=== PATIENT | female | born 2000 | race Caucasian/White ===

== ENCOUNTER 2019-03-22 11:04 | Emergency (ER) | payer SELFPAY ==
[2019-03-22 11:05] VITALS: BP 135/87; PULSE 85; RESP 16; TEMP 36.3; O2SAT 98; BMI 25.7
[2019-03-22] MEDS: proMETHazine 25 MG/ML Syringe 12.5 MG IV (11:31)
[2019-03-22 11:32] LABS: Absolute Lymphocyte Count 1.37 X10^3/uL (0.83-4.51); Absolute Neutrophil Count 7.2 X10^3/uL (2.0-7.7); Basophil# 0.03 X10^3/uL; Basophil% 0.3 % (0-1); Eosinophil# 0.02 X10^3/uL; Eosinophils% 0.2 % (0-5); Hematocrit 39.4 % (37-47); Hemoglobin 13.2 g/dL (12.0-15.0); Lymphocyte # 1.37 X10^3/ul (4.0); Lymphocyte % 15.1 % (19-41); Mean Corp Hgb Conc 33.5 g/dL (32-36); Mean Corpuscular Hgb 28.4 pg (27.0-32.0); Mean Corpuscular Volume 84.9 fL (81-99); Mean Platelet Vol. 9.3 fl (6.2-12.0); Monocyte# 0.43 X10^3/uL; Monocyte% 4.7 % (0-10); NRBC Flagged by Analyzer 0 % (0-5); Neutrophil # 7.22 X10^3/uL (2.7-7.7); Neutrophil % 79.4 % (47-70); Platelet Count 328 K/mm3 (150-450); RBC Distribution Width CV 13.7 % (11.6-14.6); RBC Distribution Width SD 42.4 fl (35.1-43.9); Red Blood Count 4.64 M/mm3 (4.2-5.4); White Blood Count 9.1 K/mm3 (4.4-11.0)
[2019-03-22 11:55] LABS: ALB/GLOB Ratio 0.8 RATIO (0.9-2.4); AST(SGOT) 10 U/L (15-37); Alanine Aminotransfer ALT/SGPT 24 U/L (13-56); Alkaline Phosphatase 75 U/L (45-117); Anion Gap 10 (5-15); BUN 7 mg/dL (7-18); BUN/Creat Ratio 9.7 RATIO (10-20); Calcium,Total 9.2 mg/dL (8.5-10.1); Chloride 102 mmol/L (98-107); Creatinine, Serum 0.72 mg/dL (0.55-1.02); EST Glomerular Filtration Rate 110 mL/min (>60); Est Glom Filt Rate - Afr Amer 133 mL/min (>60); Estimated Creatinine Clearance 103.96 ml/min; Globulin 4.9 g/dL (2.2-4.2); Glucose 97 mg/dL (74-106); Potassium 3.6 mmol/L (3.5-5.1); Protein, Total 8.9 g/dL (6.4-8.2); Sodium Level 137 mmol/L (136-145)
[2019-03-22] MEDS: Ondansetron 4 MG/2 ML Vial IV (12:28)
[2019-03-22] MEDS: 0.9% Normal Saline 1,000 ML 999 ML IV ×2 (12:29)
--- NOTE | 2019-03-22 14:05 | ED.DCSUM_ITS ---
- ER Visit Summary Date of Service: 03/22/19 Chief Complaint: Nausea and vomiting History of Present Illness: The patient is a 18 F who is at 7 weeks and 3 days. She does not have an OB yet. She presents today with nausea and vomiting for 2 days. She tried taking some Phenergan with no improvement. She denies any abdominal pain, vaginal bleeding, or vaginal discharge. Denies fevers. Physical Examination: Afebrile and vital signs unremarkable. Patient alert and oriented. No acute distress. Heart regular rate and rhythm. Lungs clear. Abdomen soft and nontender. No guarding or rebound. Gait appears normal. No edema. Test Results: CBC, CMP unremarkable. Emergency Department Course and Treatment: Patient treated with IV fluids and Phenergan. I did check some basic blood work, CBC, CMP, hCG. On reevaluation, the patient was having continued nausea and vomiting. After discussion, she was treated with Zofran. On further reevaluation, nausea and vomiting have resolved. Patient tolerated PO. Will discharge to follow-up with OB. Return for abdominal pain, bleeding, discharge. Return for fevers, new, or worsening symptoms. Treatment Plan: As above Disposition: Discharge Impression: 1. Nausea and vomiting 2. This note was generated with [email or web address] software. It may contain incorrect words, spelling, and punctuation that were not noted in review of the chart prior to signing ED Disposition - Plan for ED Patient: Referrals: Perla Dee MD [Primary Care Provider] -
--- NOTE | 2019-03-22 14:08 | ED.DEP ---
ED Disposition - Plan for ED Patient: Instructions: Hyperemesis Gravidarum (Severe Morning Sickness) Prescriptions: proMETHazine tablet [Phenergan] 25 mg PO Q6H PRN PRN #10 tab PRN Reason: Nausea Prescription Printed Referrals: Micaela Donovan MD [STAFF PHYSICIAN] -
[2019-03-22 14:17] VITALS: PULSE 85; RESP 18
== END 2019-03-22 14:18 | disposition home or self-care (01) ==
LOC: ED 11:41
PROVIDERS: Emergency Provider Emergency Medicine; Family Provider Family Medicine; PCP Family Medicine
DX: O21.9 Vomiting of pregnancy, unspecified (principal); Z3A.01 Less than 8 weeks gestation of pregnancy; O99.331 Smoking (tobacco) complicating pregnancy, first trimester
CPT/HCPCS: 80053; 84702; 85025; 96361; 96374; 96375; 99283; J7030; A4216; J2405

== ENCOUNTER 2019-04-07 13:23 | Emergency (ER) | payer SELFPAY ==
[2019-04-07 13:24] VITALS: BP 139/90; PULSE 86; RESP 16; TEMP 36.7; O2SAT 99; BMI 25.7
--- NOTE | 2019-04-07 13:37 | ED.DCSUM_ITS ---
History of Present Illness Chief Complaint: Nausea/Vomiting Informant: Patient Onset: Today Context: Sudden Onset Timing: Intermittent Quality: Nausea and vomiting Location: Not applicable Current Severity: Moderate Maximum Severity: Moderate Worsened by: First trimester Relieved by: Nothing Associated Symptoms: Thirst, dry mouth and lightheaded Narrative: Patient is a 18-year-old G1, P0 Ab0 female who is approximately 9 weeks gest ation by dates who presents with nausea vomiting started this morning. She last urinated yesterday. She denies hematemesis, no hematochezia. She denies abdominal pain. She denies cardiac or respiratory symptoms. She does not have an manager title. Prior similar symptoms: No Recent Illness/Hospitalization: No - Past Medical History (1) No significant past medical history Status: Acute Past Medical History - Allergies and Home Meds Allergies/Adverse Reactions: Allergies No Known Allergies Allergy (Verified 04/07/19 13:23) Primary Care Physician: Perla Dee MD [Primary Care Provider] - Past Medical History: None Surgical History: no surgical history Lives: Spouse/ Significant Other Smoking Status: Current some day smoker Alcohol: None, Rare Drugs: None Review of Systems General: Reports: Malaise. Denies: Chills, Fever, Subjective, Sweats, Weight loss Eyes: Denies: Visual changes - bilaterally, Blurred Vision - bilaterally, Diplopia ENT: Denies: Rhinorrhea, Sore throat Cardiovascular: Denies: Chest pain, Palpitations Respiratory: Denies: Dyspnea, Cough, Dyspnea on exertion Gastrointestinal: Reports: Abdominal pain - Vomiting, Nausea, Vomiting. Denies: Diarrhea, Constipation, Melena, Hematochezia, -, - Genitourinary: Denies: Dysuria, Hematuria, Frequency Musculoskeletal: Denies: Myalgias, Arthralgias, Neck pain, Back pain, Swelling, Extremity Pain Skin: Denies: Rash, Wounds Neurological: Denies: Headache, Weakness, Numbness Allergy: Denies: Uticaria, Swelling of the mouth Physical Exam Vital Signs/Narrative: Vital Signs Temp Pulse Resp BP Pulse Ox 04/07/19 13:24 98.0 F 86 16 139/90 H 99 Inital Vital Signs reviewed: Yes General: Well nourished, Well developed, No Acute Distress - Patient is holding an emesis bag. Head: Normocephalic, Atraumatic Eyes: Perrl, EOMI ENT: Moist mucous membranes, No rhinorrhea Neck: Supple, Nontender Cardiovascular: Regular rate, Regular rhythm, No murmurs Respiratory: No distress, CTA bilaterally, Chest nontender Abdomen: Soft, Nondistended, Normal bowel sounds, Tender - Mild periumbilical d iscomfort Back: Nontender, Normal Inspection. Negative for: CVA tenderness, Spinal tenderness Extremities: Nontender, No edema Skin: Normal color, No rash Neurological: Alert, Oriented x3, Cranial nerves II-XII grossly intact, Normal Strength, Normal Sensation Psychological: Normal affect, Normal Mood Diagnostic/Tx/Re-eval Laboratory Results 04/07/19 14:40 Urine Color Yellow Urine Clarity Sl. Cloudy Urine pH 6.5 Ur Specific Lissie 1.020 Urine Protein 30 H Urine Glucose (UA) Normal Urine Ketones 150 H Urine Occult Blood 10 H Urine Nitrite Negative Urine Bilirubin Negative Urine Urobilinogen Normal Ur Leukocyte Esterase 500 H Urine RBC 0-5 SEEN Urine WBC 25-50 SEEN Ur Squamous Epith Cells 5-10 SEEN Urine Bacteria 1+ Urine Mucus 0 SEEN Urine is suggestive of urinary tract infection. Culture was sent. She received antibiotics. She was referred to Dr. Eloina June who is on-call for [facility] or no doc. - Medical Decision Making In light of the fact that she is 9 weeks with nausea and vomiting started on abruptly concerned she has severe morning sickness. IV was established. She received 1 L normal saline. Urine was assessed for infection as well as gravity and ketones. She was treated with antiemetic. Once liter has infused will order p.o. challenge. Differential diagnosis includes nausea vomit second viral illness versus hyperemesis gravidarum versus other cause. She did pass p.o. challenge. He was treated with antibiotics and referred to [facility]. ED Disposition - Plan for ED Patient: Disposition: Home or Assisted Living Diagnosis: UTI (urinary tract infection) in in first trimester, Morning sickness, Ketosis Instructions: Urinary Tract Infections in Women, Hyperemesis Gravidarum (Severe Morning Sickness) Prescriptions: Nitrofurantoin Macrocrystals [Macrobid] 100 mg PO Q12 #14 cap Transmission Status: Pending to [facility]/pharmacy #[id number] Ondansetron [Zofran Odt] 4 mg PO Q8H PRN PRN #10 tab PRN Reason: Nausea Transmission Status: Pending to [facility]/pharmacy #[id number] Referrals: Perla Dee MD [Primary Care Provider] - Candido Rice MD [NON-STAFF] - Eloina Brand MD [STAFF PHYSICIAN] - 3-5 Days
[2019-04-07 13:43] VITALS: BP 130/70; PULSE 80; RESP 14; O2SAT 98
[2019-04-07] MEDS: 0.9% Normal Saline 1,000 ML 1000 ML IV (13:58)
[2019-04-07] MEDS: Ondansetron 4 MG/2 ML Vial IV (13:58)
[2019-04-07 14:53] LABS: Mucous, Urine 0 SEEN /hpf (<or=2+)
[2019-04-07 14:58] LABS: Color, Urine Yellow (Yellow); Glucose, Dipstick Normal (Normal); Leukocyte Esterase-Dipstick 500 /ul (Negative); Nitrite-Dipstick Negative (Negative); Occult Blood-Urine 10 /ul (Negative); Protein-Dipstick 30 mg/dl (Negative); Urine Bilirubin Dipstick Negative (Negative); Urine Clarity Sl. Cloudy (Clear); Urine Urobilinogen Normal (Normal); Urine pH 6.5 (5.0 - 8.0)
[2019-04-07 15:01] LABS: Ketone-Dipstick 150 mg/dl (Negative)
[2019-04-07 15:05] LABS: Bacteria 1+ /hpf (None Seen); Red Blood Cells-Urine 0-5 SEEN /hpf (0-5); Squamous Epithelial Cells - UA 5-10 SEEN /hpf (5-10); White Blood Cells 25-50 SEEN /hpf (0-5)
[2019-04-07] MEDS: Nitrofurantoin Macrocrystals 100 MG Capsule PO (15:17)
[2019-04-07 15:18] VITALS: BP 124/80; PULSE 80; RESP 14; O2SAT 98
== END 2019-04-07 15:18 | disposition home or self-care (01) ==
PROVIDERS: Emergency Provider Emergency Medicine; Family Provider Family Medicine; PCP Family Medicine
DX: O23.41 Unspecified infection of urinary tract in pregnancy, first trimester (principal); O21.0 Mild hyperemesis gravidarum; O99.281 Endocrine, nutritional and metabolic diseases complicating pregnancy, first trimester; E88.89 Other specified metabolic disorders; O99.331 Smoking (tobacco) complicating pregnancy, first trimester; Z3A.09 9 weeks gestation of pregnancy
CPT/HCPCS: 81001; 87086; 87088; 96361; 96374; 99283; J7030; A4216; J2405

== ENCOUNTER 2019-08-16 13:32 | Emergency (ER) | payer SELFPAY ==
[2019-08-16 13:33] VITALS: BP 138/95; PULSE 90; RESP 18; TEMP 36.4; BMI 30.2
[2019-08-16] MEDS: 0.9% Normal Saline 1,000 ML 1000 ML IV ×2 (14:04→15:42)
[2019-08-16] MEDS: Ondansetron 4 MG/2 ML Vial IV ×2 (14:04→16:04)
--- NOTE | 2019-08-16 14:15 | ED.DCSUM_ITS ---
History of Present Illness Chief Complaint: Nausea/Vomiting Informant: Patient Narrative: Patient states that she is 7 months and has been having vomiting since midnight. She also states diarrhea started today. Emesis is minimal issues with this . She typically takes Zofran but is out and states she cannot get any prescription until tomorrow when her pharmacy is open. She denies any fevers or rashes. No recent antibiotics or bad food exposure. G1, P0. She sees [facility] out of [place]. She denies any significant leg swelling, contractions or leakage of fluid/blood. Past Medical History - Allergies and Home Meds Allergies/Adverse Reactions: Allergies No Known Allergies Allergy (Verified 04/07/19 13:23) Primary Care Physician: Perla Dee MD [Primary Care Provider] - As Needed Surgical History: no surgical history Smoking Status: Never smoker Review of Systems General: Denies: Chills, Fever, Sweats Eyes: Denies: Visual changes - bilaterally, Diplopia ENT: Denies: Rhinorrhea, Sore throat Cardiovascular: Denies: Chest pain, Palpitations Respiratory: Denies: Dyspnea, Cough, Dyspnea on exertion Gastrointestinal: Reports: Nausea, Diarrhea. Denies: Abdominal pain, Melena, Hematochezia Genitourinary: Denies: Dysuria, Hematuria, Frequency Musculoskeletal: Denies: Back pain, Extremity Pain Skin: Denies: Rash, Wounds Neurological: Denies: Headache, Weakness, Numbness Physical Exam Vital Signs/Narrative: Vital Signs Temp Pulse Resp BP 08/16/19 13:33 97.5 F L 90 18 138/95 H Inital Vital Signs reviewed: Yes General: Well nourished, Well developed, No Acute Distress, - - actively vomiting Head: Normocephalic, Atraumatic Eyes: Perrl, EOMI ENT: Moist mucous membranes, No rhinorrhea Neck: Supple, Nontender Cardiovascular: Regular rate, Regular rhythm, No murmurs Respiratory: No distress, CTA bilaterally, Chest nontender Abdomen: Soft, Nontender, Nondistended, Normal bowel sounds Back: Nontender, Normal Inspection Extremities: Nontender, No edema Skin: Normal color, No rash Neurological: Alert, Oriented x3, Cranial nerves II-XII grossly intact, Normal Strength, Normal Sensation Psychological: Normal affect, Normal Mood Diagnostic/Tx/Re-eval - Medical Decision Making She received 2 L of IV fluids as well as Zofran. heart tones 136. Urinalysis was ordered. She passed a p.o. challenge. She clinically appears well. care of the patient will be checked out to oncoming physician for check of urine and final disposition. I would anticipate a discharge prescription for Zofran. ED Disposition - Plan for ED Patient: Instructions: VOMITING AND DIARRHEA, Nonspecific (Adult) Prescriptions: Ondansetron [Zofran Odt] 4 mg PO Q6H PRN PRN #20 tab PRN Reason: Nausea Prescription Printed Referrals: Perla Dee MD [Primary Care Provider] - As Needed
[2019-08-16 15:39] LABS: Bacteria 0 SEEN /hpf (None Seen)
[2019-08-16 15:40] LABS: Color, Urine YELLOW (Yellow); Glucose, Dipstick Normal (Normal); Ketone-Dipstick 50 mg/dl (Negative); Leukocyte Esterase-Dipstick 100 /ul (Negative); Nitrite-Dipstick Negative (Negative); Occult Blood-Urine Negative /ul (Negative); Protein-Dipstick 30 mg/dl (Negative); Specific Gravity, Urine 1.015 (1.002-1.030); Urine Bilirubin Dipstick Negative (Negative); Urine Clarity Sl Cldy (Clear); Urine Urobilinogen Normal (Normal); Urine pH 6.5 (5.0 - 8.0)
[2019-08-16 15:49] LABS: Amorphous Sediment 1+ URATE; Mucous, Urine RARE /hpf (<or=2+); Red Blood Cells-Urine 0-5 SEEN /hpf (0-5); Squamous Epithelial Cells - UA 0-5 SEEN /hpf (5-10); White Blood Cells 5-10 SEEN /hpf (0-5)
[2019-08-16 16:05] VITALS: BP 128/78; PULSE 90; RESP 18; O2SAT 99
[2019-08-16 16:50] VITALS: BP 128/78; PULSE 90; RESP 18; O2SAT 99
== END 2019-08-16 16:51 | disposition home or self-care (01) ==
PROVIDERS: Emergency Provider Emergency Medicine; Family Provider Family Medicine; PCP Family Medicine
DX: O26.899 Other specified pregnancy related conditions, unspecified trimester (principal); R11.2 Nausea with vomiting, unspecified; R19.7 Diarrhea, unspecified; Z3A.00 Weeks of gestation of pregnancy not specified
CPT/HCPCS: 81001; 87086; 87088; 96361; 96374; 96376; 99284; J7030; A4216; J2405